=== PATIENT | female | born 1980 | race Caucasian/White ===

== ENCOUNTER 2018-02-08 08:36 | Emergency (ER) | payer SELFPAY ==
[2016-07-26 13:34] VITALS: BMI 24.7
[~2018-02-08 08:36] MED LIST: CYCLOBENZAPRINE10 MG PO; HYDROCODONE-APA1 TAB PO; IBUPROFEN600 MG PO; MEDROL DOSE PACK4 MG PO; NEURONTIN 300300 MG PO; PERCOCET 10/3251 TA1 PO; PERCOCET 5-3251 TAB PO; PRENATAL COMPLE1 TAB PO; TUMS500 MG PO; ZOLOFT50 MG PO
== END 2018-02-08 11:07 | disposition home or self-care (01) ==
LOC: D.ER 08:36
DX: M54.2 Cervicalgia (principal)

== ENCOUNTER → 2018-02-28 14:06 | Outpatient (CLI) | payer MEDICAID ==
[2016-07-26 13:34] VITALS: BMI 24.7
== END | disposition home or self-care (01) ==
LOC: D.CT 14:06
DX: M54.12 Radiculopathy, cervical region (principal)